=== PATIENT | male | born 2000 | race Caucasian/White ===

== ENCOUNTER 2023-03-08 12:21 | Emergency (ER) | payer MEDICAID ==
[~2023-03-08] VITALS: Ht 193 cm; Wt 96.6 kg
[2023-03-08 12:38] VITALS: BP 131/76; PULSE 80; RESP 16; TEMP 97.5; O2SAT 96
[2023-03-08] MEDS ORDERED: IBUPROFEN 400 MG TAB PO ONE (13:55)
[2023-03-08 14:33] VITALS: BP 131/76; PULSE 80; RESP 16; TEMP 97.5; O2SAT 96
== END 2023-03-08 14:34 | disposition home or self-care (01) ==
LOC: MED 12:21
DX: F41.9 Anxiety disorder, unspecified (principal); F12.90 Cannabis use, unspecified, uncomplicated; F14.90 Cocaine use, unspecified, uncomplicated; Z88.0 Allergy status to penicillin
CPT/HCPCS: 99282

== ENCOUNTER 2023-03-31 11:04 | Emergency (ER) | payer MEDICAID ==
[~2023-03-31] VITALS: Ht 190.5 cm; Wt 97.5 kg
[2023-03-31 11:13] VITALS: BP 132/76; PULSE 87; RESP 16; TEMP 98.1
[2023-03-31] MEDS ORDERED: KETOROLAC 60 MG/2 ML VIAL IM ONE (12:30)
[2023-03-31] MEDS ORDERED: IBUP-2213 PO (12:51)
[2023-03-31 13:18] VITALS: BP 132/76; PULSE 87; RESP 16; TEMP 98.1
== END 2023-03-31 13:18 | disposition home or self-care (01) ==
LOC: MED 11:04
DX: S09.90XA Unspecified injury of head, initial encounter (principal); J45.909 Unspecified asthma, uncomplicated; Z98.890 Other specified postprocedural states; Z88.0 Allergy status to penicillin; W18.39XA Other fall on same level, initial encounter; Y92.89 Other specified places as the place of occurrence of the external cause; Y93.89 Activity, other specified; Y99.8 Other external cause status
CPT/HCPCS: 70450; 96372; 99285; J1885

== ENCOUNTER 2023-04-12 13:24 | Emergency (ER) | payer MEDICAID ==
[~2023-04-12] VITALS: Ht 190.5 cm; Wt 93.9 kg
[~2023-04-12 13:24] MED LIST: IBUP-2213 PO
[2023-04-12 13:42] VITALS: BP 130/78; PULSE 86; RESP 18; TEMP 98.1; O2SAT 99
[2023-04-12 14:44] LABS: BASOPHILS % (AUTO) 0.4 % (0.0-2.0); EOSINOPHILS # (AUTO) 0.1 K/uL (0-0.4); EOSINOPHILS % (AUTO) 1.4 % (0.0-4.0); HEMATOCRIT 47.8 % (36-52); HEMOGLOBIN 16.2 g/dL (12.0-18.0); LYMPHOCYTES # (AUTO) 2.4 K/uL (2.0-11.5); LYMPHOCYTES % (AUTO) 25.4 % (20.5-51.1); MEAN CORPUSCULAR HEMOGLOBIN 29 pg (27-31); MEAN CORPUSCULAR HGB CONC 34 g/dL (33-37); MEAN CORPUSCULAR VOLUME 85.8 fL (80-94); MONOCYTES # (AUTO) 0.6 K/uL (0.8-1.0); MONOCYTES % (AUTO) 6.7 % (1.7-9.3); NEUTROPHILS # (AUTO) 6.3 K/uL (1.8-7.7); NEUTROPHILS % (AUTO) 66.1 % (42.2-75.2); PLATELET COUNT (AUTO) 234 K/uL (140-450); RED BLOOD CELL COUNT(AUTO) 5.57 MIL/uL (4.20-6.10); WHITE BLOOD COUNT (AUTO) 9.5 K/uL (4.8-10.8)
[2023-04-12 15:01] LABS: ALANINE AMINOTRANSFERASE 31 U/L (12-78); ALBUMIN 4.4 g/dL (3.4-5.0); ALKALINE PHOSPHATASE 91 U/L (50-136); ANION GAP 13.5 (8-16); ASPARTATE AMINOTRANSFERASE 18 U/L (15-37); CALCIUM 9.3 mg/dL (8.5-10.1); CARBON DIOXIDE 28.2 mmol/L (21-32); CHLORIDE 103 mmol/L (98-107); CREATININE 1.1 mg/dL (0.6-1.3); GFR ARICAN-AMERICAN 105 mL/min (>90); GFR NON ARICAN-AMERICAN 87 mL/min (>90); GLUCOSE 89 mg/dL (74-106); POTASSIUM 4.7 mmol/L (3.5-5.1); SODIUM SERUM 140 mmol/L (136-145); TOTAL BILIRUBIN 0.8 mg/dL (0.0-1.0); TOTAL PROTEIN, SERUM 8.4 g/dL (6.4-8.2); UREA NITROGEN, BLOOD 12 mg/dL (7-18)
== END 2023-04-12 16:53 | disposition left against medical advice (07) ==
LOC: MED 13:24
DX: R00.2 Palpitations (principal); R55 Syncope and collapse; J45.909 Unspecified asthma, uncomplicated; Z79.1 Long term (current) use of non-steroidal anti-inflammatories (NSAID); Z88.0 Allergy status to penicillin
CPT/HCPCS: 36415; 71045; 80053; 84484; 85025; 93005; 99285

== ENCOUNTER 2023-04-19 00:24 | Emergency (ER) | payer MEDICAID | END 2023-04-19 00:40 | disposition left against medical advice (07) | LOC: MED 00:24 | DX: R00.2 Palpitations (principal); Z53.21 Procedure and treatment not carried out due to patient leaving prior to being seen by health care provider ==

== ENCOUNTER 2023-05-03 09:14 | Emergency (ER) | payer MEDICAID ==
[~2023-05-03] VITALS: Ht 193 cm; Wt 98.4 kg
[2023-05-03 09:36] VITALS: BP 116/79; PULSE 85; RESP 20; TEMP 98.2; O2SAT 96
[2023-05-03] MEDS ORDERED: LORazepam 1 MG TAB PO ONE (10:10)
[2023-05-03] MEDS ORDERED: IBUP-2213 PO (10:47)
== END 2023-05-03 11:42 | disposition home or self-care (01) ==
LOC: MED 09:14
DX: F41.9 Anxiety disorder, unspecified (principal); R07.81 Pleurodynia; F14.10 Cocaine abuse, uncomplicated; R00.2 Palpitations; J45.909 Unspecified asthma, uncomplicated; Z79.1 Long term (current) use of non-steroidal anti-inflammatories (NSAID); Z88.0 Allergy status to penicillin
CPT/HCPCS: 36415; 71045; 84484; 93005; 99285

== ENCOUNTER 2023-05-14 07:24 | Emergency (ER) | payer MEDICAID ==
[~2023-05-14] VITALS: Ht 193 cm; Wt 98.4 kg
[2023-05-14 07:26] VITALS: BP 123/82; PULSE 90; RESP 15; TEMP 98.3; O2SAT 97
[2023-05-14] MEDS ORDERED: MIDAZOLAM 2 MG/2 ML VIAL IM ONE (07:50)
[2023-05-14 08:03] LABS: BASOPHILS % (AUTO) 0.6 % (0.0-2.0); EOSINOPHILS % (AUTO) 0.2 % (0.0-4.0); HEMATOCRIT 43.9 % (36-52); HEMOGLOBIN 15.1 g/dL (12.0-18.0); LYMPHOCYTES # (AUTO) 1.4 K/uL (2.0-11.5); LYMPHOCYTES % (AUTO) 15.4 % (20.5-51.1); MEAN CORPUSCULAR HEMOGLOBIN 30 pg (27-31); MEAN CORPUSCULAR HGB CONC 34 g/dL (33-37); MEAN CORPUSCULAR VOLUME 87.1 fL (80-94); MONOCYTES # (AUTO) 0.4 K/uL (0.8-1.0); MONOCYTES % (AUTO) 4.7 % (1.7-9.3); NEUTROPHILS # (AUTO) 7.1 K/uL (1.8-7.7); NEUTROPHILS % (AUTO) 79.1 % (42.2-75.2); PLATELET COUNT (AUTO) 227 K/uL (140-450); RED BLOOD CELL COUNT(AUTO) 5.04 MIL/uL (4.20-6.10); RED CELL DISTRIBUTION WIDTH 13.4 % (11.6-13.7)
[2023-05-14 08:24] LABS: ANION GAP 13.8 (8-16); CALCIUM 8.7 mg/dL (8.5-10.1); CARBON DIOXIDE 25.6 mmol/L (21-32); POTASSIUM 3.4 mmol/L (3.5-5.1)
[2023-05-14 09:56] VITALS: BP 102/64; PULSE 83; RESP 19; O2SAT 99
== END 2023-05-14 09:58 | disposition home or self-care (01) ==
LOC: MED 07:24
DX: F14.90 Cocaine use, unspecified, uncomplicated (principal); R00.2 Palpitations; R07.9 Chest pain, unspecified; J45.909 Unspecified asthma, uncomplicated; Z79.899 Other long term (current) drug therapy; Z88.0 Allergy status to penicillin
CPT/HCPCS: 36415; 71045; 80048; 84484; 85025; 93005; 96372; 99285; J2250; Q0092

== ENCOUNTER 2023-08-20 11:00 | Emergency (ER) | payer MEDICAID ==
[~2023-08-20] VITALS: Ht 205.7 cm; Wt 98.4 kg
[2023-08-20 11:09] VITALS: BP 118/78; PULSE 76; RESP 16; TEMP 98; O2SAT 99
[2023-08-20 11:20] VITALS: O2SAT 99
== END 2023-08-20 11:43 | disposition home or self-care (01) ==
LOC: MED 11:00
DX: F14.10 Cocaine abuse, uncomplicated (principal); F41.9 Anxiety disorder, unspecified; R07.89 Other chest pain; R00.2 Palpitations; J45.909 Unspecified asthma, uncomplicated; Z79.899 Other long term (current) drug therapy; Z88.0 Allergy status to penicillin
CPT/HCPCS: 93005; 99283

== ENCOUNTER 2023-09-24 13:08 | Emergency (ER) | payer MEDICAID ==
[~2023-09-24] VITALS: Ht 193 cm; Wt 97.1 kg
[2023-09-24 13:14] VITALS: BP 115/74; PULSE 76; RESP 18; TEMP 97.9; O2SAT 96
[2023-09-24 13:35] LABS: BASOPHILS % (AUTO) 0.4 % (0.0-2.0); EOSINOPHILS # (AUTO) 0.1 K/uL (0-0.4); EOSINOPHILS % (AUTO) 1.4 % (0.0-4.0); HEMATOCRIT 47.1 % (36-52); HEMOGLOBIN 16.1 g/dL (12.0-18.0); LYMPHOCYTES % (AUTO) 24.4 % (20.5-51.1); MEAN CORPUSCULAR HEMOGLOBIN 30 pg (27-31); MEAN CORPUSCULAR HGB CONC 34 g/dL (33-37); MEAN CORPUSCULAR VOLUME 88.7 fL (80-94); MONOCYTES # (AUTO) 0.5 K/uL (0.8-1.0); MONOCYTES % (AUTO) 6.1 % (1.7-9.3); NEUTROPHILS # (AUTO) 5.6 K/uL (1.8-7.7); NEUTROPHILS % (AUTO) 67.7 % (42.2-75.2); PLATELET COUNT (AUTO) 239 K/uL (140-450); RED BLOOD CELL COUNT(AUTO) 5.31 MIL/uL (4.20-6.10); RED CELL DISTRIBUTION WIDTH 12.9 % (11.6-13.7); WHITE BLOOD COUNT (AUTO) 8.2 K/uL (4.8-10.8)
[2023-09-24 13:48] LABS: ANION GAP 12.1 (8-16); CARBON DIOXIDE 30.2 mmol/L (21-32); CREATININE 1.1 mg/dL (0.6-1.3); POTASSIUM 4.3 mmol/L (3.5-5.1)
[2023-09-24] MEDS ORDERED: ATA25 PO (14:16)
[2023-09-24 15:10] VITALS: BP 118/78; PULSE 75; RESP 15; TEMP 97.9; O2SAT 98
== END 2023-09-24 14:40 | disposition home or self-care (01) ==
LOC: MED 13:08
DX: R07.89 Other chest pain (principal); F41.9 Anxiety disorder, unspecified; J45.909 Unspecified asthma, uncomplicated; Z88.0 Allergy status to penicillin; Z79.899 Other long term (current) drug therapy
CPT/HCPCS: 36415; 71045; 80048; 84484; 85025; 93005; 99285

== ENCOUNTER 2023-11-09 08:45 | Emergency (ER) | payer MEDICAID ==
[~2023-11-09] VITALS: Ht 193 cm; Wt 97.1 kg
[~2023-11-09 08:45] MED LIST changes: +ATA25 PO
[2023-11-09 08:57] VITALS: BP 115/70; PULSE 86; RESP 16; TEMP 97.5; O2SAT 99
[2023-11-09] MEDS ORDERED: LORA-476 PO (09:27)
== END 2023-11-09 09:34 | disposition home or self-care (01) ==
LOC: MED 08:45
DX: R00.2 Palpitations (principal); J45.909 Unspecified asthma, uncomplicated; F14.90 Cocaine use, unspecified, uncomplicated; Z79.1 Long term (current) use of non-steroidal anti-inflammatories (NSAID); Z79.899 Other long term (current) drug therapy; Z88.0 Allergy status to penicillin; Z91.018 Allergy to other foods; Z91.010 Allergy to peanuts
CPT/HCPCS: 93005; 99283

== ENCOUNTER 2023-12-21 21:43 | Emergency (ER) | payer MEDICAID ==
[~2023-12-21] VITALS: Ht 193 cm; Wt 95.3 kg
[~2023-12-21 21:43] MED LIST changes: +LORA-476 PO
[2023-12-21 21:54] VITALS: BP 136/84; PULSE 70; RESP 20; TEMP 98.3; O2SAT 99
[2023-12-21 22:10] VITALS: O2SAT 94
[2023-12-21 22:24] LABS: AMPHETAMINE, URINE NEGATIVE ng/ml (NEG <=1000); BARBITURATE, URINE NEGATIVE ng/ml (NEG <=200); BENZODIAZEPINE, URINE NEGATIVE ng/mL (NEG <=200); CANNABINOID, URINE POSITIVE ng/mL (NEG <=50); COCAINE, URINE NEGATIVE ng/mL (NEG <=300)
[2023-12-21 22:25] LABS: OPIATE, URINE NEGATIVE ng/mL (NEG <=2000); PHENCYCLIDINE SCREEN,URINE NEGATIVE ng/mL (NEG <=25)
[2023-12-21 22:32] VITALS: BP 141/82; PULSE 63; RESP 11
[2023-12-21 22:33] VITALS: O2SAT 98
== END 2023-12-21 22:38 | disposition home or self-care (01) ==
LOC: MED 21:43
DX: R00.2 Palpitations (principal); J45.909 Unspecified asthma, uncomplicated; Z79.1 Long term (current) use of non-steroidal anti-inflammatories (NSAID); Z79.899 Other long term (current) drug therapy; Z88.0 Allergy status to penicillin
CPT/HCPCS: 80305; 82948; 99283

== ENCOUNTER 2023-12-29 11:33 | Emergency (ER) | payer MEDICAID ==
[~2023-12-29] VITALS: Ht 190.5 cm; Wt 97.5 kg
[2023-12-29 11:41] VITALS: BP 116/75; PULSE 96; RESP 16; TEMP 97.9; O2SAT 99
[2023-12-29 13:00] VITALS: BP 111/69; PULSE 90; RESP 12; O2SAT 98
== END 2023-12-29 13:08 | disposition home or self-care (01) ==
LOC: MED 11:33
DX: R00.2 Palpitations (principal); F14.90 Cocaine use, unspecified, uncomplicated; J45.909 Unspecified asthma, uncomplicated; Z79.899 Other long term (current) drug therapy; Z88.0 Allergy status to penicillin
CPT/HCPCS: 93005; 99283

== ENCOUNTER 2024-01-18 08:37 | Emergency (ER) | payer MEDICAID ==
[~2024-01-18] VITALS: Ht 193 cm; Wt 98.1 kg
[2024-01-18 08:58] VITALS: BP 109/78; PULSE 75; RESP 18; TEMP 97.8; O2SAT 98
--- NOTE | 2024-01-18 09:03 | NUR ---
PT AMBULATED TO CHAIR B, FOLLOWING TRIAGE
[2024-01-18] MEDS ORDERED: POLY10SO OP (09:04)
[2024-01-18] MEDS ORDERED: TETRACAINE HCL/PF 0.5% OPTH 4 ML BTL ONE (09:19)
[2024-01-18] MEDS: FLUORESCEIN OPTH STRIP 1 MG OP ONE (09:36)
[2024-01-18] MEDS: TETRACAINE 1% 2 ML AMP INJ ONE (09:37)
--- NOTE | 2024-01-18 10:34 | NUR ---
Patient discharged with v/s stable. Written and verbal after care instructions given and explained eye contusion. Patient alert, oriented and verbalized understanding of instructions. Ambulatory with steady gait. All questions addressed prior to discharge. ID band removed. Patient advised to follow up with PMD. Rx of polymyxin Btmp eye drops given. Patient educated on indication of medication including possible reaction and side effects. Opportunity to ask questions provided and answered.
== END 2024-01-18 10:34 | disposition home or self-care (01) ==
LOC: MED 08:37
DX: S00.12XA Contusion of left eyelid and periocular area, initial encounter (principal); H57.12 Ocular pain, left eye; J45.909 Unspecified asthma, uncomplicated; Z79.1 Long term (current) use of non-steroidal anti-inflammatories (NSAID); Z79.899 Other long term (current) drug therapy; Z88.0 Allergy status to penicillin; X58.XXXA Exposure to other specified factors, initial encounter; Y93.89 Activity, other specified; Y92.89 Other specified places as the place of occurrence of the external cause; Y99.8 Other external cause status
CPT/HCPCS: 70450; 99284; J3490

== ENCOUNTER 2024-02-29 11:17 | Emergency (ER) | payer MEDICAID ==
[~2024-02-29] VITALS: Ht 190.5 cm; Wt 97.1 kg
[~2024-02-29 11:17] MED LIST changes: +POLY10SO OP
[2024-02-29 11:21] VITALS: BP 108/74; PULSE 80; RESP 18; TEMP 98.1; O2SAT 96
[2024-02-29 11:31] VITALS: O2SAT 96
== END 2024-02-29 12:38 | disposition home or self-care (01) ==
LOC: MED 11:17
DX: R07.9 Chest pain, unspecified (principal); R06.02 Shortness of breath; R00.2 Palpitations; F41.9 Anxiety disorder, unspecified; F14.90 Cocaine use, unspecified, uncomplicated; F10.90 Alcohol use, unspecified, uncomplicated; F12.90 Cannabis use, unspecified, uncomplicated; J45.909 Unspecified asthma, uncomplicated; Z79.899 Other long term (current) drug therapy; Z98.890 Other specified postprocedural states; Z88.0 Allergy status to penicillin; Y90.9 Presence of alcohol in blood, level not specified
CPT/HCPCS: 93005; 99283

== ENCOUNTER 2024-03-08 06:13 | Emergency (ER) | payer MEDICAID ==
[~2024-03-08] VITALS: Ht 193 cm; Wt 97.1 kg
[2024-03-08 06:22] VITALS: BP 125/74; PULSE 122; RESP 18; TEMP 98.2; O2SAT 99
[2024-03-08 06:46] VITALS: BP 125/74; PULSE 124; RESP 20; O2SAT 100
== END 2024-03-08 06:56 | disposition home or self-care (01) ==
LOC: MED 06:13
DX: R00.2 Palpitations (principal); F14.10 Cocaine abuse, uncomplicated; R03.0 Elevated blood-pressure reading, without diagnosis of hypertension; J45.909 Unspecified asthma, uncomplicated; Z79.899 Other long term (current) drug therapy; Z88.0 Allergy status to penicillin
CPT/HCPCS: 93005; 99283